=== PATIENT | male | born 2000 | race Caucasian/White ===

== ENCOUNTER → 2023-11-19 07:37 | Outpatient (REF) | payer OTHER, SELFPAY | LOC: MRI 3T 07:37 | PROVIDERS: ATTENDING PHYSICIAN Internal Medicine | DX: K50.80 Crohn's disease of both small and large intestine without complications (principal); K61.0 Anal abscess | CPT/HCPCS: 72197; A9575 ==

== ENCOUNTER → 2024-11-28 09:20 | Outpatient (REF) | payer BC, SELFPAY | LOC: MRI 3T 09:20 | PROVIDERS: ATTENDING PHYSICIAN Internal Medicine; PRIMARYCARE PHYSICIAN Family Medicine | DX: K50.80 Crohn's disease of both small and large intestine without complications (principal); K61.0 Anal abscess | CPT/HCPCS: 72197; 74183; A9575 ==